=== PATIENT | female | born 1990 | race Caucasian/White ===

== ENCOUNTER 2017-07-21 06:13 | Emergency (ER) | payer MEDICAID ==
[~2017-07-21] VITALS: Ht 160 cm; Wt 106.3 kg
[2017-07-21 06:14] VITALS: BP 121/79
[2017-07-21] MEDS ORDERED: ALBUTEROL/IPRATROPIUM 2.5MG/0.5MG, 3 ML ONE (06:48)
[2017-07-21] MEDS ORDERED: ALBUTEROL/IPRATROPIUM 2.5MG/0.5MG, 3 ML NPPB ONE (07:00)
[2017-07-21 07:06] LABS: HEMOGLOBIN 13.4 g/dL (11.7-16.4); WHITE BLOOD COUNT 10.3 x10^3/uL (3.4-10)
== END 2017-07-21 07:44 | disposition home or self-care (01) ==
LOC: ED 07:28
DX: O26.891 Other specified pregnancy related conditions, first trimester (principal); Z3A.13 13 weeks gestation of pregnancy; J20.9 Acute bronchitis, unspecified; B96.89 Other specified bacterial agents as the cause of diseases classified elsewhere; J45.909 Unspecified asthma, uncomplicated; F17.210 Nicotine dependence, cigarettes, uncomplicated; Z59.0 Homelessness; Z60.2 Problems related to living alone
CPT/HCPCS: 36415; 76801; 81001; 84702; 85025; 87086; 94640; 99285; J7620

== ENCOUNTER 2017-07-21 17:57 | Emergency (ER) | payer MEDICAID ==
[~2017-07-21] VITALS: Ht 160 cm; Wt 107.4 kg
[2017-07-21 18:01] VITALS: BP 127/79
[2017-07-21] MEDS ORDERED: LIDOCAINE 1%, 20ML ONE (18:53)
[2017-07-21] MEDS ORDERED: DIPHENHYDRAMINE 50 MG CAPSULE PO STA (19:22)
[2017-07-21] MEDS ORDERED: DIPHENHYDRAMINE 25 MG CAPSULE ONE (19:27)
== END 2017-07-21 19:39 | disposition home or self-care (01) ==
LOC: ED 19:15
DX: O26.891 Other specified pregnancy related conditions, first trimester (principal); L03.311 Cellulitis of abdominal wall; Z3A.14 14 weeks gestation of pregnancy; J45.909 Unspecified asthma, uncomplicated; O99.712 Diseases of the skin and subcutaneous tissue complicating pregnancy, second trimester; Z59.0 Homelessness
CPT/HCPCS: 99283

== ENCOUNTER 2017-11-14 19:00 | Outpatient (CLI) | payer MEDICAID ==
[~2017-11-14] VITALS: Ht 160 cm; Wt 100.0 kg
[~2017-11-14 19:00] MED LIST: PREN1TAB98 PO
[2017-11-14 19:58] LABS: MICROSCOPIC INDICATED
[2017-11-14 20:02] LABS: AMPHETAMINE SCREEN, URINE Positive (Negative); BARBITURATE SCREEN, URINE Negative (Negative); BENZODIAZEPINE SCREEN, URINE Negative (Negative); CANNABINOID SCREEN, URINE Positive (Negative); COCAINE SCREEN, URINE Negative (Negative); METHADONE SCREEN, URINE Negative (Negative); OPIATE SCREEN, URINE Negative (Negative)
[2017-11-14] MEDS ORDERED: MAALOX/HYOSCYAMINE/LIDOCAINE 45 ML BTL PO ONE (20:30)
[2017-11-14] MEDS ORDERED: OMEPRAZOLE 20 MG CAPSULE.DR PO ONE (21:00)
== END 2017-11-14 21:36 | disposition home or self-care (01) ==
LOC: LDOP 19:00
PROVIDERS: ATTEND Obstetrics & Gynecology
DX: O26.893 Other specified pregnancy related conditions, third trimester (principal); R10.9 Unspecified abdominal pain; Z3A.30 30 weeks gestation of pregnancy
CPT/HCPCS: 59025; 80307; 81001; 87086; 99211; G0463

== ENCOUNTER 2018-03-01 02:32 | Emergency (ER) | payer MEDICAID ==
[~2018-03-01] VITALS: Ht 160 cm; Wt 86.6 kg
[2018-03-01 02:33] VITALS: BP 104/73
[2018-03-01] MEDS ORDERED: IBUPROFEN 200 MG TABLET PO ONE (03:00)
[2018-03-01] MEDS ORDERED: IBUPROFEN 200 MG TABLET ONE (03:03)
== END 2018-03-01 03:53 | disposition home or self-care (01) ==
LOC: ED 03:47
DX: S00.12XA Contusion of left eyelid and periocular area, initial encounter (principal); S00.83XA Contusion of other part of head, initial encounter; J45.909 Unspecified asthma, uncomplicated; F17.210 Nicotine dependence, cigarettes, uncomplicated; F12.10 Cannabis abuse, uncomplicated; Z88.0 Allergy status to penicillin; Y04.0XXA Assault by unarmed brawl or fight, initial encounter; Y93.89 Activity, other specified; Y92.89 Other specified places as the place of occurrence of the external cause; Y99.8 Other external cause status
CPT/HCPCS: 70486; 99284

== ENCOUNTER 2018-05-13 01:41 | Emergency (ER) | payer MEDICAID ==
[~2018-05-13] VITALS: Ht 160 cm; Wt 81.4 kg
[2018-05-13] MEDS ORDERED: MAALOX/HYOSCYAMINE/LIDOCAINE 45 ML BTL PO ONE (02:30)
[2018-05-13 02:35] LABS: BASOPHILS # (AUTO) 0.09 x10^3/uL (0-0.1); BASOPHILS % (AUTO) 1 % (0-1); EOSINOPHILS # (AUTO) 0.37 x10^3/uL (0-0.4); EOSINOPHILS % (AUTO) 3 % (1-7); LYMPHOCYTES # (AUTO) 2.31 x10^3/uL (1-3.4); LYMPHOCYTES % (AUTO) 19 % (22-44); MD NO; MEAN CORPUSCULAR HEMOGLOBIN 28.1 pg (27.0-34.8); MEAN CORPUSCULAR HGB CONC 33.5 g/dL (32.4-35.8); MEAN CORPUSCULAR VOLUME 83.9 fL (80-100); MEAN PLATELET VOLUME 7.9 fL (7.4-10.4); MONOCYTES # (AUTO) 0.71 x10^3/uL (0.2-0.8); MONOCYTES % (AUTO) 6 % (2-9); NEUTROPHILS # (AUTO) 8.49 x10^3/uL (1.8-6.8); NEUTROPHILS % (AUTO) 71 % (42-75); PLATELET COUNT 311 x10^3/uL (130-400); RED CELL DISTRIBUTION WIDTH 16.4 % (9.6-15.2)
[2018-05-13] MEDS ORDERED: MAALOX/HYOSCYAMINE/LIDOCAINE 45 ML BTL ONE (02:39)
[2018-05-13 02:47] LABS: ALBUMIN 3.4 g/dL (3.4-5.0); ANION GAP 8 mmol/L (5-15); CALCIUM 8.7 mg/dL (8.5-10.1); CHLORIDE 103 mmol/L (98-107)
[2018-05-13 02:52] LABS: ALANINE AMINOTRANSFERASE 78 U/L (12-78); ALKALINE PHOSPHATASE 95 U/L (45-117); BILIRUBIN,TOTAL 0.4 mg/dL (0.2-1.0); CREATININE 0.58 mg/dL (0.55-1.02); TOTAL PROTEIN 7.2 g/dL (6.4-8.2)
[2018-05-13 03:02] LABS: CULTURE INDICATED? YES; MICROSCOPIC INDICATED
[2018-05-13 03:05] LABS: AMPHETAMINE SCREEN, URINE Positive (Negative); BARBITURATE SCREEN, URINE Negative (Negative); BENZODIAZEPINE SCREEN, URINE Negative (Negative); CANNABINOID SCREEN, URINE Negative (Negative); COCAINE SCREEN, URINE Positive (Negative); METHADONE SCREEN, URINE Negative (Negative); OPIATE SCREEN, URINE Negative (Negative)
[2018-05-13] MEDS ORDERED: NITROFURANTOIN (MACROBID) 100 MG CAPSULE PO ONE (03:30)
[2018-05-13] MEDS ORDERED: IBUPROFEN 800 MG TABLET PO STA (03:30)
[2018-05-13] MEDS ORDERED: PHENAZOPYRIDINE 200 MG TABLET PO STA (03:30)
[2018-05-13] MEDS ORDERED: IBUPROFEN 800 MG TABLET ONE (04:07)
[2018-05-13] MEDS ORDERED: NITROFURANTOIN (MACROBID) 100 MG CAPSULE ONE (04:07)
[2018-05-13] MEDS ORDERED: PHENAZOPYRIDINE 200 MG TABLET ONE (04:07)
[2018-05-13 04:12] VITALS: BP 124/79
== END 2018-05-13 04:16 | disposition home or self-care (01) ==
LOC: ED 03:30
DX: N30.01 Acute cystitis with hematuria (principal); F15.10 Other stimulant abuse, uncomplicated; F14.10 Cocaine abuse, uncomplicated; F17.210 Nicotine dependence, cigarettes, uncomplicated; J45.909 Unspecified asthma, uncomplicated
CPT/HCPCS: 36415; 80053; 80307; 81001; 83690; 84703; 85025; 87086; 99284